=== PATIENT | male | born 1980 | race Caucasian/White ===

== ENCOUNTER 2024-06-19 10:52 | Day surgery (SDC) | payer OTHER ==
[2024-06-19] MEDS ORDERED: dexAMETHasone sodium phosphate IJ ONE (10:53)
[2024-06-19] MEDS ORDERED: LIDOCAINE HCL 2% 100 MG/5 ML IJ ONE (10:53)
[2024-06-19] MEDS ORDERED: propofoL IV ONE ×2 (13:25→13:28)
--- NOTE | 2024-06-19 14:54 | XRAY ---
Indication: Left C2-C4 MBB. Intraoperative fluoroscopy was provided for 27 seconds. 2 digital spot image submitted for interpretation demonstrates posterior needle tips projecting over expected left C2-C4 nerve roots. Correlate with intraoperative findings/report.
--- NOTE | 2024-06-19 15:20 | XRAY ---
27 seconds of fluoroscopy was used in surgery for a left C2-C4 MBB.
== END 2024-06-19 14:06 | disposition home or self-care (01) ==
LOC: SDC-PAIN 10:52
PROVIDERS: ATTEND Psychiatry & Neurology Pain Medicine
DX: M47.812 Spondylosis without myelopathy or radiculopathy, cervical region (principal)
CPT/HCPCS: 64490; 64491; 72040; 77002; J1100; J2704

== ENCOUNTER 2024-07-24 10:47 | Day surgery (SDC) | payer OTHER ==
[2024-07-24] MEDS ORDERED: Depo-Medrol 40 MG/ML IM ONE (10:48)
[2024-07-24] MEDS ORDERED: BUPIVACAINE 0.5% VIAL IJ ONE (10:48)
[2024-07-24] MEDS ORDERED: Lactated Ringers 500 ML IV ONE (12:24)
[2024-07-24] MEDS ORDERED: propofoL IV ONE (13:35)
--- NOTE | 2024-07-24 15:00 | XRAY ---
Indication: Left C2-C4 MBB. Intraoperative fluoroscopy provided for 18 seconds. 2 digital spot image submitted for interpretation demonstrates posterior needle tips projecting over expected left C2-C4 nerve roots. Correlate with intraoperative findings/report.
--- NOTE | 2024-07-24 15:01 | XRAY ---
18 seconds of fluoroscopy was used in surgery for a left C2-C4 MBB.
== END 2024-07-24 14:03 | disposition home or self-care (01) ==
LOC: SDC-PAIN 10:47
PROVIDERS: ATTEND Psychiatry & Neurology Pain Medicine
DX: M47.812 Spondylosis without myelopathy or radiculopathy, cervical region (principal)
CPT/HCPCS: 64490; 64491; 72040; 77002; J2704